=== PATIENT | female | born 1970 | race Two or more races ===

== ENCOUNTER 2022-11-18 11:22 | Emergency (ER) | payer MEDICAID, OTHER ==
[~2022-11-18] VITALS: Ht 160 cm; Wt 84.0 kg
[2022-11-18 12:30] LABS: Albumin 3.6 g/dL (3.4-5.0); BUN/Creatinine Ratio 13.2 (10.0-20.0); Potassium 3.9 mmol/L (3.5-5.1)
[2022-11-18 12:33] LABS: Bilirubin, Total 0.8 mg/dL (0.2-1.0); Total Protein 7.3 g/dL (6.4-8.2)
[2022-11-18 12:35] LABS: Basophils # (auto) 0 10 ^3/uL (0-0.2); Basophils % (auto) 0.5 % (0.0-2.0); Eosinophils # (auto) 0.1 10 ^3/uL (0-0.8); Eosinophils % (auto) 1.7 % (0.0-7.0); Hematocrit 41.6 % (36.0-46.0); Hemoglobin 13.8 g/dL (12.2-16.2); Lymphocytes # (auto) 2.8 10 ^3/uL (0.4-5.4); Lymphocytes % (auto) 40.9 % (10.0-50.0); Mean Corpuscular Hgb Conc. 33.3 g/dL (32.0-36.0); Mean Corpuscular Volume 87.2 fL (80.0-100.0); Monocytes # (auto) 0.4 10 ^3/uL (0-1.3); Monocytes % (auto) 5.6 % (0.0-12.0); Neutrophils # (auto) 3.5 10 ^3/uL (1.6-8.6); Neutrophils % (auto) 51.3 % (37.0-80.0); Nucleated Red Blood Cells % 0.2 %; Red Blood Cells 4.77 10^6/uL (4.0-5.20); Red Cell Distribution Width 13.8 % (11.8-14.3); White Blood Cell 6.8 10^3/uL (4.4-10.8)
[2022-11-18 13:04] LABS: Urine Bacteria NONE SEEN /hpf (None Seen); Urine Blood Negative /uL (Negative); Urine Clarity HAZY (Clear); Urine Color Yellow (Yellow); Urine Mucus FEW (None Seen); Urine Protein, UAD TRACE (Negative); Urine Specific Gravity 1.019 (1.001-1.035); Urine Urobilinogen Normal (Negative); Urine WBC 4 /hpf (0 - 5); Urine pH 6.5 (5.0-8.0)
[2022-11-18] MEDS ORDERED: MECL25CH38 PO (14:05)
[2022-11-18] MEDS ORDERED: NITR-87 PO (14:05)
[2022-11-18 14:51] VITALS: BP 107/71; PULSE 72; RESP 16; TEMP 97.5; O2SAT 98
== END 2022-11-18 14:52 | disposition home or self-care (01) ==
LOC: ER 11:22
DX: R42 Dizziness and giddiness (principal); N39.0 Urinary tract infection, site not specified; R73.9 Hyperglycemia, unspecified
CPT/HCPCS: 36415; 70450; 80053; 81001; 82962; 84484; 85025; 93005